=== PATIENT | female | born 1935 | race Caucasian/White ===

== ENCOUNTER 2017-09-21 18:00 | Inpatient (IN) | payer OTHER ==
[~2017-09-21] VITALS: Ht 149.9 cm; Wt 63.1 kg
[~2017-09-21 18:00] MED LIST: ATENOLOL25 MG PO; AUG500 PO; CEPACOL SORE TH1 LO4 MM; CIPRO500 MG PO; COL100 PO; COZAAR100 MG PO; EC NAPROSYN500 MG PO; IPRATROPIUM BROM3 M2 HHN; L40 PO; LAC PO; MEDROL4 MG; MIRAPEX PO; MUCINEX600 MG PO; NEU300 PO; ROBDML PO; SPIRIVA18 MC1 INH; XARELTO15 M1 PO
[2017-09-21 19:02] LABS: BASOPHIL % 0.2 % (0-2); PLATELET COUNT 262 x10^3mcL (130-400)
[2017-09-21 19:05] LABS: RED CELL DISTRIBUTION WIDTH 14.6 % (11.5-14.5)
[2017-09-21 19:21] LABS: ALKALINE PHOSPHATASE 107 U/L (46-116); ALT/SGPT 40 U/L (14-59); AST/SGOT 31 U/L (15-37); BILIRUBIN TOTAL 0.86 mg/dL (0.20-1.00); CARBON DIOXIDE 33.9 mmol/L (21-32); CHLORIDE SERUM 103 mmol/L (98-107); CREATININE SERUM 0.9 mg/dL (0.6-1.0); POTASSIUM SERUM 3.6 mmol/L (3.5-5.1); SODIUM SERUM 142 mmol/L (136-145); TOTAL PROTEIN, SERUM 7.5 g/dL (6.4-8.2)
[2017-09-21 19:24] LABS: microscopic required? YES; urine erythrocyte NEGATIVE (NEGATIVE)
[2017-09-21 19:24] LABS: ALBUMIN 3.3 g/dL (3.4-5.0)
[2017-09-21] MEDS ORDERED: NEU300 PO (20:17)
[2017-09-21] MEDS ORDERED: XARELTO10 M1 (20:18)
[2017-09-21] MEDS ORDERED: NOR5 PO (20:18)
[2017-09-21] MEDS ORDERED: MIRAPEX0.25 MG PO (20:19)
[2017-09-21] MEDS ORDERED: SEROQUEL25 MG PO (20:19)
[2017-09-21] MEDS ORDERED: ATORVASTATIN CA40 M1 PO (20:22)
[2017-09-21] MEDS ORDERED: FUROSEMIDE20 MG PO (20:23)
[2017-09-21] MEDS ORDERED: ATENOLOL25 MG PO (20:23)
[2017-09-21] MEDS ORDERED: COZAAR100 MG PO (20:23)
[2017-09-21 20:25] LABS: GLUCOSE SERUM 148 mg/dL (74-106)
[2017-09-21 20:38] VITALS: BP 159/79
[2017-09-21] MEDS ORDERED: LEVAQUIN750 MG PO ×2 (21:03→21:05)
[2017-09-21 21:09] LABS: MAGNESIUM 2.4 mg/dL (1.8-2.4); PHOSPHOROUS 2.6 mg/dL (2.5-4.9)
[2017-09-21 21:17] LABS: FREE T4 0.93 ng/dL (0.76-1.46)
[2017-09-21 21:31] LABS: FREE THYROXINE INDEX 2.3 ug/dL (1.4-4.5); T4(THYROXINE) 6.7 ug/dL (4.7-13.3)
[2017-09-21 21:44] LABS: T3 TOTAL 0.71 ng/mL
== END 2017-09-21 21:23 | disposition left against medical advice (07) | DRG 291 ==
LOC: ED 18:00 → DU 19:33
PROVIDERS: Emergency Medicine; ADMIT Family Medicine
DX: I11.0 Hypertensive heart disease with heart failure (principal); N17.0 Acute kidney failure with tubular necrosis; J96.01 Acute respiratory failure with hypoxia; E44.1 Mild protein-calorie malnutrition; I50.43 Acute on chronic combined systolic (congestive) and diastolic (congestive) heart failure; I48.91 Unspecified atrial fibrillation
CPT/HCPCS: 83880; 84439; J0696

== ENCOUNTER 2017-09-25 09:04 | Emergency (ER) | payer OTHER ==
[~2017-09-25 09:04] MED LIST changes: +ATORVASTATIN CA40 M1 PO; +FUROSEMIDE20 MG PO; +LEVAQUIN750 MG PO; +MIRAPEX0.25 MG PO; +NOR5 PO; +SEROQUEL25 MG PO; +XARELTO10 M1
[2017-09-25 10:10] VITALS: BP 177/91
== END 2017-09-25 10:10 | disposition home or self-care (01) ==
LOC: ED 09:04
DX: R04.0 Epistaxis (principal)

== ENCOUNTER 2017-12-06 12:25 | Inpatient (IN) | payer OTHER ==
[~2017-12-06] VITALS: Ht 149.9 cm; Wt 60.4 kg
[2017-12-06 12:51] VITALS: Ht 149.9 cm; Wt 60.4 kg
[2017-12-06 14:10] LABS: BASOPHIL % 0.3 % (0-2); PLATELET COUNT 208 x10^3mcL (130-400)
[2017-12-06 14:14] LABS: CALCIUM 8.6 mg/dL (8.5-10.1); CARBON DIOXIDE 28.9 mmol/L (21-32); CHLORIDE SERUM 105 mmol/L (98-107); CREATININE SERUM 0.9 mg/dL (0.6-1.0); GLUCOSE SERUM 91 mg/dL (74-106); POTASSIUM SERUM 3.3 mmol/L (3.5-5.1); SODIUM SERUM 141 mmol/L (136-145)
[2017-12-06 14:19] LABS: ALKALINE PHOSPHATASE 87 U/L (46-116); ALT/SGPT 29 U/L (14-59); AST/SGOT 25 U/L (15-37); BILIRUBIN TOTAL 0.8 mg/dL (0.20-1.00)
[2017-12-06 14:20] LABS: ALBUMIN 2.8 g/dL (3.4-5.0); TOTAL PROTEIN, SERUM 5.8 g/dL (6.4-8.2)
[2017-12-06] MEDS ORDERED: CHILDREN'S100 MG/52 (15:42)
[2017-12-06] MEDS ORDERED: PROL (15:42)
[2017-12-06] MEDS ORDERED: CORICIDIN HBP C1 TA1 PO (15:42)
[2017-12-06 16:32] LABS: PHOSPHOROUS 2.9 mg/dL (2.5-4.9)
[2017-12-06 16:35] LABS: CHOLESTEROL/HDL RATIO 2.4
[2017-12-06 16:46] LABS: FREE T4 0.95 ng/dL (0.76-1.46); FREE THYROXINE INDEX 1.9 ug/dL (1.4-4.5); T4(THYROXINE) 5.5 ug/dL (4.7-13.3)
[2017-12-06] MEDS ORDERED: SEROQUEL25 MG PO (17:14)
[2017-12-06] MEDS ORDERED: NEU300 PO (17:15)
[2017-12-06] MEDS ORDERED: FLUOXETINE20 M3 (17:17)
[2017-12-06] MEDS ORDERED: FUROSEMIDE40 MG PO (17:18)
[2017-12-06] MEDS ORDERED: NOR5 PO (17:18)
[2017-12-06] MEDS ORDERED: RANITIDINE HCL150 M1 PO (17:19)
[2017-12-06] MEDS ORDERED: MIRAPEX0.125 M1 PO (17:20)
[2017-12-06] MEDS ORDERED: LIPI20 PO (17:21)
[2017-12-06] MEDS ORDERED: ATENOLOL25 MG (17:23)
[2017-12-06] MEDS ORDERED: COZAAR100 MG PO (17:24)
[2017-12-06] MEDS ORDERED: XARELTO15 M1 (17:25)
[2017-12-06] MEDS ORDERED: LORAZEPAM1 MG PO (17:28)
[2017-12-06] MEDS ORDERED: LORAZEPAM0.5 MG PO (17:29)
[2017-12-06 17:30] LABS: T3 TOTAL 0.84 ng/mL
[2017-12-06 18:34] VITALS: BP 117/89
[2017-12-06 18:48] VITALS: BP 137/74
[2017-12-06 20:00] VITALS: BP 140/69
[2017-12-07 05:16] VITALS: BP 127/57
[2017-12-07 06:43] LABS: BASOPHIL % 0.1 % (0-2); PLATELET COUNT 205 x10^3mcL (130-400)
[2017-12-07 06:44] LABS: RED CELL DISTRIBUTION WIDTH 16.7 % (11.5-14.5)
[2017-12-07 07:08] LABS: CALCIUM 8.4 mg/dL (8.5-10.1); CARBON DIOXIDE 22.2 mmol/L (21-32); CHLORIDE SERUM 107 mmol/L (98-107); CREATININE SERUM 1.3 mg/dL (0.6-1.0); GLUCOSE SERUM 312 mg/dL (74-106); MAGNESIUM 2.1 mg/dL (1.8-2.4); PHOSPHOROUS 2.8 mg/dL (2.5-4.9); POTASSIUM SERUM 3.4 mmol/L (3.5-5.1); SODIUM SERUM 142 mmol/L (136-145)
[2017-12-07 07:18] LABS: microscopic required? NO
[2017-12-07 07:49] LABS: UA SPECIFIC GRAVITY 1.025 (1.005-1.035); urine erythrocyte NEGATIVE (NEGATIVE)
[2017-12-07 08:13] LABS: AMPHETAMINE QUAL UR NONE DETECTED (NEG <=1000)
[2017-12-07 14:44] VITALS: BP 124/57
[2017-12-07 17:57] VITALS: BP 109/67
[2017-12-07 21:00] VITALS: BP 98/68
[2017-12-07 21:05] VITALS: BP 114/54
[2017-12-08 05:59] VITALS: BP 113/65
[2017-12-08 06:48] LABS: PLATELET COUNT 197 x10^3mcL (130-400)
[2017-12-08 06:49] LABS: RED CELL DISTRIBUTION WIDTH 16.2 % (11.5-14.5)
[2017-12-08 06:56] LABS: CALCIUM 7.4 mg/dL (8.5-10.1); CARBON DIOXIDE 23.7 mmol/L (21-32); CHLORIDE SERUM 109 mmol/L (98-107); GLUCOSE SERUM 193 mg/dL (74-106); PHOSPHOROUS 2.5 mg/dL (2.5-4.9); POTASSIUM SERUM 3.2 mmol/L (3.5-5.1); SODIUM SERUM 144 mmol/L (136-145)
[2017-12-08 08:19] LABS: MONOCYTE 2 % (0-7); SEGMENTED NEUTROPHILS 91 % (37-75)
[2017-12-08 08:20] LABS: BAND NEUTROPHIL 2 % (0-10); rbc morphology (normal/abnorm) NORMAL (NORMAL)
[2017-12-08 10:15] VITALS: BP 147/79
[2017-12-08 14:22] VITALS: BP 136/75
[2017-12-08 18:41] VITALS: BP 120/58
[2017-12-08 21:16] VITALS: BP 104/64
[2017-12-09 05:48] VITALS: BP 136/77
[2017-12-09 06:54] LABS: PLATELET COUNT 201 x10^3mcL (130-400)
[2017-12-09 07:02] LABS: RED CELL DISTRIBUTION WIDTH 16.7 % (11.5-14.5)
[2017-12-09 07:15] LABS: CALCIUM 7.9 mg/dL (8.5-10.1); CARBON DIOXIDE 23.2 mmol/L (21-32); CHLORIDE SERUM 111 mmol/L (98-107); GLUCOSE SERUM 183 mg/dL (74-106); MAGNESIUM 2.1 mg/dL (1.8-2.4); PHOSPHOROUS 1.6 mg/dL (2.5-4.9); POTASSIUM SERUM 3.4 mmol/L (3.5-5.1); SODIUM SERUM 145 mmol/L (136-145)
[2017-12-09 08:17] LABS: BAND NEUTROPHIL 0 % (0-10); BASOPHIL 0 % (0-2); MONOCYTE 9 % (0-7); SEGMENTED NEUTROPHILS 80 % (37-75)
[2017-12-09 08:18] LABS: rbc morphology (normal/abnorm) ABNORMAL (NORMAL)
[2017-12-09 08:19] LABS: ovalocyte/elliptocyte 1+; schistocyte (helmet cell) 1+
[2017-12-09 09:07] VITALS: BP 163/96
[2017-12-09 16:39] VITALS: BP 130/77
[2017-12-09 19:20] VITALS: BP 133/82
[2017-12-10 05:28] VITALS: BP 121/68
[2017-12-10 06:14] LABS: PLATELET COUNT 218 x10^3mcL (130-400)
[2017-12-10 06:39] LABS: CALCIUM 7.8 mg/dL (8.5-10.1); CHLORIDE SERUM 104 mmol/L (98-107); CREATININE SERUM 0.9 mg/dL (0.6-1.0); GLUCOSE SERUM 196 mg/dL (74-106); PHOSPHOROUS 2.1 mg/dL (2.5-4.9); POTASSIUM SERUM 3.2 mmol/L (3.5-5.1); SODIUM SERUM 142 mmol/L (136-145)
[2017-12-10 06:56] LABS: BASOPHIL % 0 % (0-2); RED CELL DISTRIBUTION WIDTH 16.6 % (11.5-14.5)
[2017-12-10 09:42] VITALS: BP 140/83
[2017-12-10] MEDS ORDERED: AUGMENTIN 875-1 EACH PO (10:17)
[2017-12-10] MEDS ORDERED: MEDDP PO (10:18)
[2017-12-10] MEDS ORDERED: CULTURELLE DIGE1 CAP PO (10:19)
[2017-12-10] MEDS ORDERED: KLOR-CON M2020 MEQ PO (10:19)
[2017-12-10 10:34] VITALS: BP 140/83
== END 2017-12-10 15:40 | disposition home health service (06) | DRG 189 ==
LOC: ED 12:25 → DU 16:11 → MU 12-09 10:59
PROVIDERS: Emergency Medicine; Family Medicine
DX: J96.01 Acute respiratory failure with hypoxia (principal); N17.0 Acute kidney failure with tubular necrosis; E43 Unspecified severe protein-calorie malnutrition; I42.0 Dilated cardiomyopathy; J20.9 Acute bronchitis, unspecified; I48.91 Unspecified atrial fibrillation; I11.0 Hypertensive heart disease with heart failure; I50.9 Heart failure, unspecified; R73.03 Prediabetes; K29.70 Gastritis, unspecified, without bleeding; E87.6 Hypokalemia; E03.9 Hypothyroidism, unspecified; G62.9 Polyneuropathy, unspecified; G25.81 Restless legs syndrome; F32.9 Major depressive disorder, single episode, unspecified; Z68.27 Body mass index [BMI] 27.0-27.9, adult; Z79.01 Long term (current) use of anticoagulants
CPT/HCPCS: 36600; 83880; 84439; 87804; 97110-GP; 97116-GP; 97530-GP; J0456; J0696; J2543; J2920; J2930; J3490; J7030; J7050; J7620; Q0092

== ENCOUNTER 2017-12-12 14:54 | Inpatient (IN) | payer OTHER ==
[~2017-12-12] VITALS: Ht 149.9 cm; Wt 59.5 kg
[~2017-12-12 14:54] MED LIST changes: +ATENOLOL25 MG; +AUGMENTIN 875-1 EACH PO; +CHILDREN'S100 MG/52; +CORICIDIN HBP C1 TA1 PO; +CULTURELLE DIGE1 CAP PO; +FLUOXETINE20 M3; +FUROSEMIDE40 MG PO; +KLOR-CON M2020 MEQ PO; +LIPI20 PO; +LORAZEPAM0.5 MG PO; +LORAZEPAM1 MG PO; +MEDDP PO; +MIRAPEX0.125 M1 PO; +PROL; +RANITIDINE HCL150 M1 PO; +XARELTO15 M1
[2017-12-12 15:07] VITALS: Ht 149.9 cm; Wt 59.5 kg
[2017-12-12 16:42] LABS: BASOPHIL % 0.3 % (0-2); PLATELET COUNT 290 x10^3mcL (130-400)
[2017-12-12 16:47] LABS: RED CELL DISTRIBUTION WIDTH 15.9 % (11.5-14.5)
[2017-12-12 16:58] LABS: CALCIUM 9.9 mg/dL (8.5-10.1); CARBON DIOXIDE 31.3 mmol/L (21-32); CHLORIDE SERUM 101 mmol/L (98-107); CREATININE SERUM 0.8 mg/dL (0.6-1.0); GLUCOSE SERUM 113 mg/dL (74-106); POTASSIUM SERUM 3.7 mmol/L (3.5-5.1); SODIUM SERUM 139 mmol/L (136-145)
[2017-12-12 17:03] LABS: ALKALINE PHOSPHATASE 84 U/L (46-116); ALT/SGPT 59 U/L (14-59); AMYLASE 52 U/L (25-115); AST/SGOT 38 U/L (15-37); BILIRUBIN TOTAL 1.35 mg/dL (0.20-1.00); LIPASE 147 IU/L (73-393); TOTAL PROTEIN, SERUM 6.9 g/dL (6.4-8.2)
[2017-12-12 17:04] LABS: ALBUMIN 3.2 g/dL (3.4-5.0)
[2017-12-12 17:07] LABS: microscopic required? NO
[2017-12-12 17:35] LABS: urine erythrocyte NEGATIVE (NEGATIVE)
[2017-12-12 19:55] VITALS: BP 153/91
[2017-12-12 19:59] LABS: PHOSPHOROUS 3.5 mg/dL (2.5-4.9)
[2017-12-12 20:00] LABS: CHOLESTEROL/HDL RATIO 2.5
[2017-12-12 20:43] LABS: FREE T4 1.02 ng/dL (0.76-1.46); FREE THYROXINE INDEX 2.3 ug/dL (1.4-4.5); T4(THYROXINE) 6.4 ug/dL (4.7-13.3)
[2017-12-12 21:58] LABS: T3 TOTAL 0.73 ng/mL
[2017-12-13] VITALS (8 sets, daily range): BP systolic 84–126; BP diastolic 44–75
[2017-12-13 06:17] LABS: PLATELET COUNT 259 x10^3mcL (130-400)
[2017-12-13 07:21] LABS: CALCIUM 8.7 mg/dL (8.5-10.1); CARBON DIOXIDE 34.5 mmol/L (21-32); CHLORIDE SERUM 102 mmol/L (98-107); CREATININE SERUM 1.1 mg/dL (0.6-1.0); GLUCOSE SERUM 95 mg/dL (74-106); POTASSIUM SERUM 3.7 mmol/L (3.5-5.1); SODIUM SERUM 141 mmol/L (136-145)
[2017-12-13 08:49] LABS: RED CELL DISTRIBUTION WIDTH 16.1 % (11.5-14.5)
[2017-12-13 12:08] LABS: ATYPICAL LYMPH 4 %; BAND NEUTROPHIL 1 % (0-10); BASOPHIL 0 % (0-2); MONOCYTE 9 % (0-7); MYELOCYTE 1 % (0-2); SEGMENTED NEUTROPHILS 64 % (37-75)
[2017-12-13 12:09] LABS: rbc morphology (normal/abnorm) ABNORMAL (NORMAL); schistocyte (helmet cell) 2+
[2017-12-13 12:10] LABS: PLATELET MORPHOLOGY PLATELETS NORMAL
[2017-12-14 06:19] VITALS: BP 118/59
[2017-12-14 06:27] LABS: BASOPHIL % 0.8 % (0-2); PLATELET COUNT 286 x10^3mcL (130-400)
[2017-12-14 06:40] LABS: RED CELL DISTRIBUTION WIDTH 15.1 % (11.5-14.5)
[2017-12-14 07:02] LABS: ALKALINE PHOSPHATASE 72 U/L (46-116); ALT/SGPT 64 U/L (14-59); AST/SGOT 33 U/L (15-37); BILIRUBIN TOTAL 0.6 mg/dL (0.20-1.00); CALCIUM 8.2 mg/dL (8.5-10.1); CARBON DIOXIDE 30.8 mmol/L (21-32); CHLORIDE SERUM 104 mmol/L (98-107); CREATININE SERUM 1.1 mg/dL (0.6-1.0); GLUCOSE SERUM 75 mg/dL (74-106); POTASSIUM SERUM 3.3 mmol/L (3.5-5.1); SODIUM SERUM 142 mmol/L (136-145)
[2017-12-14 07:08] LABS: ALBUMIN 2.2 g/dL (3.4-5.0)
[2017-12-14 10:09] VITALS: BP 117/55
[2017-12-14 12:56] VITALS: BP 124/56
[2017-12-14 18:17] VITALS: BP 142/73
[2017-12-14 22:10] VITALS: BP 112/73
[2017-12-15 06:31] VITALS: BP 157/78
[2017-12-15 06:48] LABS: PLATELET COUNT 266 x10^3mcL (130-400)
[2017-12-15 07:14] LABS: RED CELL DISTRIBUTION WIDTH 15.8 % (11.5-14.5)
[2017-12-15 07:16] LABS: CALCIUM 8.8 mg/dL (8.5-10.1); CARBON DIOXIDE 29.3 mmol/L (21-32); CHLORIDE SERUM 104 mmol/L (98-107); CREATININE SERUM 0.7 mg/dL (0.6-1.0); GLUCOSE SERUM 88 mg/dL (74-106); POTASSIUM SERUM 3.9 mmol/L (3.5-5.1); SODIUM SERUM 140 mmol/L (136-145)
[2017-12-15 09:45] VITALS: BP 149/78
[2017-12-15 10:37] VITALS: BP 103/49
[2017-12-15 11:07] LABS: BAND NEUTROPHIL 1 % (0-10); BASOPHIL 0 % (0-2); MONOCYTE 5 % (0-7); SEGMENTED NEUTROPHILS 75 % (37-75)
[2017-12-15 11:08] LABS: MYELOCYTE 2 % (0-2); PLATELET MORPHOLOGY PLATELETS NORMAL; rbc morphology (normal/abnorm) ABNORMAL (NORMAL)
== END 2017-12-15 12:35 | disposition home health service (06) | DRG 555 ==
LOC: ED 14:54 → DU 19:04
PROVIDERS: Emergency Medicine; Family Medicine
DX: M79.81 Nontraumatic hematoma of soft tissue (principal); E43 Unspecified severe protein-calorie malnutrition; I42.0 Dilated cardiomyopathy; S30.1XXA Contusion of abdominal wall, initial encounter; J45.909 Unspecified asthma, uncomplicated; I11.0 Hypertensive heart disease with heart failure; I50.9 Heart failure, unspecified; T50.995A Adverse effect of other drugs, medicaments and biological substances, initial encounter; Y92.89 Other specified places as the place of occurrence of the external cause; I48.91 Unspecified atrial fibrillation; K21.9 Gastro-esophageal reflux disease without esophagitis; E02 Subclinical iodine-deficiency hypothyroidism; Z90.49 Acquired absence of other specified parts of digestive tract; Z83.3 Family history of diabetes mellitus; Z80.42 Family history of malignant neoplasm of prostate; E78.2 Mixed hyperlipidemia; Z68.26 Body mass index [BMI] 26.0-26.9, adult; E11.40 Type 2 diabetes mellitus with diabetic neuropathy, unspecified; G25.81 Restless legs syndrome; E87.6 Hypokalemia
CPT/HCPCS: 82962; 83880; 84439; 97530-GP; G0378; J1940; J2270; J2405; J3010; J7030

== ENCOUNTER 2018-05-19 12:01 | Inpatient (IN) | payer OTHER ==
[~2018-05-19] VITALS: Ht 149.9 cm; Wt 50.5 kg
[2018-05-19 13:14] LABS: BASOPHIL % 0.4 % (0-2); PLATELET COUNT 314 x10^3mcL (130-400)
[2018-05-19 13:15] LABS: RED CELL DISTRIBUTION WIDTH 15.3 % (11.5-14.5)
[2018-05-19 13:15] LABS: microscopic required? NO
[2018-05-19 13:36] LABS: CALCIUM 9.5 mg/dL (8.5-10.1); CARBON DIOXIDE 28.8 mmol/L (21-32); CHLORIDE SERUM 104 mmol/L (98-107); CREATININE SERUM 1.5 mg/dL (0.6-1.0); GLUCOSE SERUM 89 mg/dL (74-106); POTASSIUM SERUM 3.7 mmol/L (3.5-5.1); SODIUM SERUM 143 mmol/L (136-145)
[2018-05-19 13:36] LABS: UA SPECIFIC GRAVITY <=1.005 (1.005-1.035); urine erythrocyte NEGATIVE (NEGATIVE)
[2018-05-19 13:40] LABS: ALKALINE PHOSPHATASE 119 U/L (46-116); ALT/SGPT 25 U/L (14-59); AMYLASE 55 U/L (25-115); AST/SGOT 28 U/L (15-37); CHOLESTEROL 149 mg/dL (<200); HDL CHOLESTEROL 43 mg/dL (40-60); LIPASE 170 IU/L (73-393); TOTAL PROTEIN, SERUM 7.1 g/dL (6.4-8.2)
[2018-05-19 13:41] LABS: ALBUMIN 2.8 g/dL (3.4-5.0)
[2018-05-19] MEDS ORDERED: LEVO-T25 MCG PO (19:24)
[2018-05-19] MEDS ORDERED: METOLAZONE2.5 M1 PO (19:27)
[2018-05-19] MEDS ORDERED: CIPRO250 MG PO (19:28)
[2018-05-19] MEDS ORDERED: ESCITALOPRAM10 M1 PO (19:30)
[2018-05-19 20:35] LABS: AMPHETAMINE QUAL UR NONE DETECTED (See below)
[2018-05-19 20:40] LABS: T3 TOTAL 1.37 ng/mL
[2018-05-19 20:43] LABS: FREE T4 1.39 ng/dL (0.76-1.46); FREE THYROXINE INDEX 3.3 ug/dL (1.4-4.5)
[2018-05-19 21:18] VITALS: BP 126/59
[2018-05-19 22:04] LABS: IRON 99 ug/dL (50-170); TOTAL IRON BINDING CAPACITY 286 ug/dL (250-450)
[2018-05-19 22:19] LABS: RED BLOOD CELLS 3.82 M/mm3 (4.10-5.10)
[2018-05-19 22:46] VITALS: BP 117/73
[2018-05-20] VITALS (7 sets, daily range): BP systolic 88–119; BP diastolic 47–65
[2018-05-20 06:46] LABS: BASOPHIL % 0.5 % (0-2); PLATELET COUNT 326 x10^3mcL (130-400)
[2018-05-20 06:52] LABS: CALCIUM 9.3 mg/dL (8.5-10.1); CARBON DIOXIDE 27.3 mmol/L (21-32); CHLORIDE SERUM 104 mmol/L (98-107); CREATININE SERUM 1.4 mg/dL (0.6-1.0); GLUCOSE SERUM 91 mg/dL (74-106); SODIUM SERUM 143 mmol/L (136-145)
[2018-05-20 07:09] LABS: RED CELL DISTRIBUTION WIDTH 15.2 % (11.5-14.5)
[2018-05-21 05:06] VITALS: BP 99/52
[2018-05-21 08:00] VITALS: BP 109/55
[2018-05-21 09:00] VITALS: BP 106/57
[2018-05-21 13:27] VITALS: BP 107/49
[2018-05-21 14:31] VITALS: BP 107/49
[2018-05-21] MEDS ORDERED: ATORVASTATIN CA40 M1 PO (14:35)
[2018-05-21 14:36] LABS: CALCIUM 8.5 mg/dL (8.5-10.1); CARBON DIOXIDE 30.6 mmol/L (21-32); CHLORIDE SERUM 104 mmol/L (98-107); CREATININE SERUM 1.8 mg/dL (0.6-1.0); GLUCOSE SERUM 111 mg/dL (74-106); SODIUM SERUM 141 mmol/L (136-145)
== END 2018-05-21 15:18 | disposition home or self-care (01) | DRG 291 ==
LOC: ED 12:01 → DU 19:20
PROVIDERS: Emergency Medicine; Family Medicine
DX: I13.0 Hypertensive heart and chronic kidney disease with heart failure and stage 1 through stage 4 chronic kidney disease, or unspecified chronic kidney disease (principal); N17.0 Acute kidney failure with tubular necrosis; I50.43 Acute on chronic combined systolic (congestive) and diastolic (congestive) heart failure; I09.81 Rheumatic heart failure; N39.0 Urinary tract infection, site not specified; D68.69 Other thrombophilia; I08.3 Combined rheumatic disorders of mitral, aortic and tricuspid valves; E11.65 Type 2 diabetes mellitus with hyperglycemia; I48.2 Chronic atrial fibrillation; N18.3 Chronic kidney disease, stage 3 (moderate); J45.909 Unspecified asthma, uncomplicated; G25.81 Restless legs syndrome; D53.9 Nutritional anemia, unspecified; E78.00 Pure hypercholesterolemia, unspecified; E03.9 Hypothyroidism, unspecified; Z79.4 Long term (current) use of insulin; Z77.29 Contact with and (suspected) exposure to other hazardous substances
CPT/HCPCS: 36600; 83880; 84439; 94150; J1940; J7030; Q0092; Q0162

== ENCOUNTER 2018-06-06 19:52 | Emergency (ER) | payer OTHER ==
[~2018-06-06] VITALS: Ht 149.9 cm; Wt 58.1 kg
[~2018-06-06 19:52] MED LIST changes: +CIPRO250 MG PO; +ESCITALOPRAM10 M1 PO; +LEVO-T25 MCG PO; +METOLAZONE2.5 M1 PO
[2018-06-06 20:00] VITALS: Ht 149.9 cm; Wt 58.1 kg
[2018-06-06 20:33] LABS: BASOPHIL % 0.4 % (0-2); PLATELET COUNT 272 x10^3mcL (130-400)
[2018-06-06 20:43] LABS: CALCIUM 8.3 mg/dL (8.5-10.1); CHLORIDE SERUM 108 mmol/L (98-107); CREATININE SERUM 1.1 mg/dL (0.6-1.0); GLUCOSE SERUM 187 mg/dL (74-106); POTASSIUM SERUM 3.4 mmol/L (3.5-5.1); SODIUM SERUM 142 mmol/L (136-145)
[2018-06-06 20:47] LABS: ALKALINE PHOSPHATASE 78 U/L (46-116); ALT/SGPT 26 U/L (14-59); AST/SGOT 27 U/L (15-37); BILIRUBIN TOTAL 0.79 mg/dL (0.20-1.00); HDL CHOLESTEROL 59 mg/dL (40-60); MAGNESIUM 2.1 mg/dL (1.8-2.4)
[2018-06-06 20:48] LABS: RED CELL DISTRIBUTION WIDTH 16.2 % (11.5-14.5)
[2018-06-06 20:54] LABS: ALBUMIN 2.8 g/dL (3.4-5.0); CHOLESTEROL 131 mg/dL (<200); TOTAL PROTEIN, SERUM 6.1 g/dL (6.4-8.2)
[2018-06-06 23:54] VITALS: BP 160/78
== END 2018-06-06 23:54 | disposition home or self-care (01) ==
LOC: ED 19:52
PROVIDERS: Emergency Medicine
DX: I48.91 Unspecified atrial fibrillation (principal); T42.8X5A Adverse effect of antiparkinsonism drugs and other central muscle-tone depressants, initial encounter; T40.2X5A Adverse effect of other opioids, initial encounter; M19.90 Unspecified osteoarthritis, unspecified site; I11.0 Hypertensive heart disease with heart failure; I50.9 Heart failure, unspecified; J45.909 Unspecified asthma, uncomplicated; Z90.49 Acquired absence of other specified parts of digestive tract; E03.9 Hypothyroidism, unspecified; Y92.89 Other specified places as the place of occurrence of the external cause
CPT/HCPCS: J1885; J3490

== ENCOUNTER 2018-07-15 06:47 | Inpatient (IN) | payer OTHER ==
[~2018-07-15] VITALS: Ht 149.9 cm; Wt 57.2 kg
[2018-07-15 06:53] VITALS: Ht 149.9 cm; Wt 57.2 kg
[2018-07-15 08:14] LABS: BASOPHIL % 0.2 % (0-2); PLATELET COUNT 215 x10^3mcL (130-400)
[2018-07-15 08:15] LABS: RED CELL DISTRIBUTION WIDTH 16.5 % (11.5-14.5)
[2018-07-15 08:28] LABS: CALCIUM 9.2 mg/dL (8.5-10.1); CARBON DIOXIDE 28.1 mmol/L (21-32); CHLORIDE SERUM 106 mmol/L (98-107); CREATININE SERUM 0.9 mg/dL (0.6-1.0); GLUCOSE SERUM 138 mg/dL (74-106); POTASSIUM SERUM 3.1 mmol/L (3.5-5.1); SODIUM SERUM 142 mmol/L (136-145)
[2018-07-15 08:32] LABS: ALBUMIN 3.4 g/dL (3.4-5.0); ALKALINE PHOSPHATASE 88 U/L (46-116); ALT/SGPT 75 U/L (14-59); AST/SGOT 37 U/L (15-37); BILIRUBIN TOTAL 1.5 mg/dL (0.20-1.00); LIPASE 127 IU/L (73-393); TOTAL PROTEIN, SERUM 7.2 g/dL (6.4-8.2)
[2018-07-15 12:24] VITALS: BP 161/81
[2018-07-15 13:48] LABS: T3 TOTAL 0.85 ng/mL
[2018-07-15 14:08] LABS: MAGNESIUM 2.4 mg/dL (1.8-2.4); PHOSPHOROUS 3.3 mg/dL (2.5-4.9)
[2018-07-15 14:11] LABS: microscopic required? NO
[2018-07-15 14:18] LABS: FREE T4 1.19 ng/dL (0.76-1.46); FREE THYROXINE INDEX 3.1 ug/dL (1.4-4.5); T4(THYROXINE) 8.3 ug/dL (4.7-13.3)
[2018-07-15 14:20] LABS: urine erythrocyte NEGATIVE (NEGATIVE)
[2018-07-15] MEDS ORDERED: XARELTO15 M1 PO (14:22)
[2018-07-15] MEDS ORDERED: FLUOXETINE HYDR10 M1 PO (14:23)
[2018-07-15] MEDS ORDERED: GLIPIZIDE5 M2 PO (14:23)
[2018-07-15 14:32] LABS: AMPHETAMINE QUAL UR NONE DETECTED (See below)
[2018-07-15 15:02] VITALS: BP 161/81
[2018-07-15 17:50] VITALS: BP 159/77
[2018-07-15 19:02] LABS: CHOLESTEROL/HDL RATIO 2.2
[2018-07-15 20:15] VITALS: BP 147/67
[2018-07-16 05:25] VITALS: BP 177/89
[2018-07-16 06:38] LABS: BASOPHIL % 0.1 % (0-2); PLATELET COUNT 218 x10^3mcL (130-400)
[2018-07-16 06:43] LABS: CALCIUM 9.6 mg/dL (8.5-10.1); CARBON DIOXIDE 27.5 mmol/L (21-32); CHLORIDE SERUM 108 mmol/L (98-107); CREATININE SERUM 0.8 mg/dL (0.6-1.0); GLUCOSE SERUM 108 mg/dL (74-106); POTASSIUM SERUM 4.2 mmol/L (3.5-5.1); SODIUM SERUM 144 mmol/L (136-145)
[2018-07-16 06:55] LABS: RED CELL DISTRIBUTION WIDTH 17.2 % (11.5-14.5)
[2018-07-16 09:03] VITALS: BP 169/65
[2018-07-16] MEDS ORDERED: ATENOLOL50 MG PO (10:57)
[2018-07-16 10:59] VITALS: BP 122/62
[2018-07-16 11:48] VITALS: BP 122/62
== END 2018-07-16 13:13 | disposition home or self-care (01) | DRG 291 ==
LOC: ED 06:47 → DU 10:44
PROVIDERS: Emergency Medicine; Internal Medicine
DX: I50.43 Acute on chronic combined systolic (congestive) and diastolic (congestive) heart failure (principal); N17.0 Acute kidney failure with tubular necrosis; I16.1 Hypertensive emergency; D68.69 Other thrombophilia; D72.829 Elevated white blood cell count, unspecified; I48.91 Unspecified atrial fibrillation; E87.6 Hypokalemia; E11.9 Type 2 diabetes mellitus without complications; E03.9 Hypothyroidism, unspecified; Z79.01 Long term (current) use of anticoagulants
CPT/HCPCS: 82962; 83880; 84439; 94150; J1940; J7620; Q0092

== ENCOUNTER 2018-09-19 16:03 | Inpatient (IN) | payer OTHER ==
[~2018-09-19] VITALS: Ht 149.9 cm; Wt 58.1 kg
[~2018-09-19 16:03] MED LIST changes: +ATENOLOL50 MG PO; +FLUOXETINE HYDR10 M1 PO; +GLIPIZIDE5 M2 PO
[2018-09-19 16:32] VITALS: Ht 149.9 cm; Wt 58.1 kg
[2018-09-19 17:20] LABS: BASOPHIL % 0.3 % (0-2); PLATELET COUNT 209 x10^3mcL (130-400); RED CELL DISTRIBUTION WIDTH 17.3 % (11.5-14.5)
[2018-09-19 17:26] LABS: CALCIUM 8.9 mg/dL (8.5-10.1); CARBON DIOXIDE 28.1 mmol/L (21-32); CHLORIDE SERUM 110 mmol/L (98-107); CREATININE SERUM 1.1 mg/dL (0.6-1.0); GLUCOSE SERUM 76 mg/dL (74-106); POTASSIUM SERUM 3.6 mmol/L (3.5-5.1); SODIUM SERUM 147 mmol/L (136-145)
[2018-09-19 17:30] LABS: ALKALINE PHOSPHATASE 94 U/L (46-116); ALT/SGPT 38 U/L (14-59); AST/SGOT 21 U/L (15-37); BILIRUBIN TOTAL 0.9 mg/dL (0.20-1.00); TOTAL PROTEIN, SERUM 6.4 g/dL (6.4-8.2)
[2018-09-19 17:31] LABS: ALBUMIN 2.5 g/dL (3.4-5.0)
[2018-09-19] MEDS ORDERED: LEVOTHYROXIN0.025 M2 PO (17:58)
[2018-09-19] MEDS ORDERED: FLUOXETINE HYDR10 M1 PO (17:58)
[2018-09-19] MEDS ORDERED: FUROSEMIDE40 MG PO (17:59)
[2018-09-19] MEDS ORDERED: GLIPIZIDE5 M2 PO (17:59)
[2018-09-19] MEDS ORDERED: NEU300 PO (17:59)
[2018-09-19] MEDS ORDERED: LOSARTAN POTAS100 M1 PO (17:59)
[2018-09-19] MEDS ORDERED: POTASSIUM CHLO10 MEQ PO (18:00)
[2018-09-19] MEDS ORDERED: MIRAPEX0.125 M1 PO (18:00)
[2018-09-19] MEDS ORDERED: XARELTO15 M1 PO (18:01)
[2018-09-19] MEDS ORDERED: TENORMIN50 MG PO (18:01)
[2018-09-19] MEDS ORDERED: VALACYCLOVIR PO (18:01)
[2018-09-19 19:32] LABS: MAGNESIUM 2.5 mg/dL (1.8-2.4); PHOSPHOROUS 3.5 mg/dL (2.5-4.9)
[2018-09-19 20:13] VITALS: BP 144/85
[2018-09-20 00:54] LABS: UA SPECIFIC GRAVITY 1.015 (1.005-1.035); microscopic required? YES; urine erythrocyte NEGATIVE (NEGATIVE)
[2018-09-20 05:44] VITALS: BP 145/79
[2018-09-20 07:20] LABS: CALCIUM 8.7 mg/dL (8.5-10.1); CARBON DIOXIDE 24.4 mmol/L (21-32); CHLORIDE SERUM 108 mmol/L (98-107); GLUCOSE SERUM 137 mg/dL (74-106); MAGNESIUM 2.5 mg/dL (1.8-2.4); PHOSPHOROUS 2.8 mg/dL (2.5-4.9); POTASSIUM SERUM 4.3 mmol/L (3.5-5.1); SODIUM SERUM 142 mmol/L (136-145)
[2018-09-20 07:48] LABS: BASOPHIL % 0.2 % (0-2); PLATELET COUNT 181 x10^3mcL (130-400)
[2018-09-20 07:52] LABS: RED CELL DISTRIBUTION WIDTH 15.7 % (11.5-14.5)
[2018-09-20 09:43] VITALS: BP 116/60
[2018-09-20 17:53] VITALS: BP 139/79
[2018-09-20 21:16] VITALS: BP 133/79
[2018-09-21 05:27] VITALS: BP 150/76
[2018-09-21 06:04] LABS: PLATELET COUNT 175 x10^3mcL (130-400)
[2018-09-21 06:31] LABS: CALCIUM 8.5 mg/dL (8.5-10.1); CARBON DIOXIDE 24.6 mmol/L (21-32); CHLORIDE SERUM 105 mmol/L (98-107); GLUCOSE SERUM 122 mg/dL (74-106); MAGNESIUM 1.8 mg/dL (1.8-2.4); PHOSPHOROUS 3.1 mg/dL (2.5-4.9); POTASSIUM SERUM 3.5 mmol/L (3.5-5.1); SODIUM SERUM 137 mmol/L (136-145)
[2018-09-21 06:33] LABS: BASOPHIL % 0 % (0-2); RED CELL DISTRIBUTION WIDTH 16.5 % (11.5-14.5)
[2018-09-21 09:35] VITALS: BP 134/56
[2018-09-21 17:43] VITALS: BP 149/74
[2018-09-21 20:59] VITALS: BP 171/77
[2018-09-21 23:17] VITALS: BP 160/86
[2018-09-22 05:37] VITALS: BP 155/82
[2018-09-22 07:26] LABS: CALCIUM 8.8 mg/dL (8.5-10.1); CARBON DIOXIDE 26.6 mmol/L (21-32); CHLORIDE SERUM 105 mmol/L (98-107); GLUCOSE SERUM 96 mg/dL (74-106); MAGNESIUM 1.7 mg/dL (1.8-2.4); PHOSPHOROUS 3.4 mg/dL (2.5-4.9); SODIUM SERUM 140 mmol/L (136-145)
[2018-09-22 08:14] LABS: POTASSIUM SERUM 2.8 mmol/L (3.5-5.1)
[2018-09-22 08:15] LABS: BASOPHIL % 0.6 % (0-2); PLATELET COUNT 197 x10^3mcL (130-400)
[2018-09-22 08:17] LABS: RED CELL DISTRIBUTION WIDTH 14.9 % (11.5-14.5)
[2018-09-22 08:43] VITALS: BP 152/69
[2018-09-22 12:54] VITALS: BP 126/66
[2018-09-22 13:32] VITALS: BP 126/66
[2018-09-22 17:14] VITALS: BP 143/71
[2018-09-22 21:36] VITALS: BP 112/57
[2018-09-23 05:35] VITALS: BP 149/75
[2018-09-23 06:33] LABS: BASOPHIL % 0.1 % (0-2); PLATELET COUNT 226 x10^3mcL (130-400)
[2018-09-23 06:40] LABS: RED CELL DISTRIBUTION WIDTH 16.2 % (11.5-14.5)
[2018-09-23 06:54] LABS: CALCIUM 9.3 mg/dL (8.5-10.1); CARBON DIOXIDE 27.9 mmol/L (21-32); CHLORIDE SERUM 103 mmol/L (98-107); GLUCOSE SERUM 96 mg/dL (74-106); MAGNESIUM 1.6 mg/dL (1.8-2.4); PHOSPHOROUS 3.6 mg/dL (2.5-4.9); SODIUM SERUM 140 mmol/L (136-145)
[2018-09-23 06:57] LABS: POTASSIUM SERUM 2.9 mmol/L (3.5-5.1)
[2018-09-23 09:32] VITALS: BP 160/74
[2018-09-23 12:48] VITALS: BP 147/69
[2018-09-23] MEDS ORDERED: ULTRAM50 MG PO (15:04)
[2018-09-23] MEDS ORDERED: LEVAQUIN500 M1 PO (15:06)
[2018-09-23 17:18] VITALS: BP 144/75
[2018-09-23 17:30] LABS: CALCIUM 9.3 mg/dL (8.5-10.1); CARBON DIOXIDE 28.7 mmol/L (21-32); CHLORIDE SERUM 102 mmol/L (98-107); CREATININE SERUM 1.1 mg/dL (0.6-1.0); GLUCOSE SERUM 115 mg/dL (74-106); POTASSIUM SERUM 3.4 mmol/L (3.5-5.1); SODIUM SERUM 141 mmol/L (136-145)
[2018-09-23 21:05] VITALS: BP 176/89
[2018-09-23 23:04] VITALS: BP 133/61
[2018-09-24 05:19] LABS: BASOPHIL % 0.3 % (0-2); PLATELET COUNT 250 x10^3mcL (130-400)
[2018-09-24 05:29] LABS: CARBON DIOXIDE 29.5 mmol/L (21-32); CHLORIDE SERUM 102 mmol/L (98-107); CREATININE SERUM 1.1 mg/dL (0.6-1.0); GLUCOSE SERUM 83 mg/dL (74-106)
[2018-09-24 05:42] VITALS: BP 135/55
[2018-09-24 05:44] LABS: SODIUM SERUM 142 mmol/L (136-145)
[2018-09-24 05:46] LABS: POTASSIUM SERUM 2.8 mmol/L (3.5-5.1)
[2018-09-24 10:03] VITALS: BP 130/60
[2018-09-24 10:19] VITALS: BP 130/60
== END 2018-09-24 11:27 | disposition home health service (06) | DRG 602 ==
LOC: ED 16:03 → MU 18:09 → DU 18:09 → MU 19:39 → DU 09-21 17:49
PROVIDERS: Emergency Medicine; Family Medicine
DX: L03.115 Cellulitis of right lower limb (principal); N17.0 Acute kidney failure with tubular necrosis; E43 Unspecified severe protein-calorie malnutrition; E87.0 Hyperosmolality and hypernatremia; I13.0 Hypertensive heart and chronic kidney disease with heart failure and stage 1 through stage 4 chronic kidney disease, or unspecified chronic kidney disease; N18.3 Chronic kidney disease, stage 3 (moderate); E86.0 Dehydration; E83.41 Hypermagnesemia; B02.9 Zoster without complications; F32.9 Major depressive disorder, single episode, unspecified; I73.9 Peripheral vascular disease, unspecified; I48.91 Unspecified atrial fibrillation; E03.9 Hypothyroidism, unspecified; I87.8 Other specified disorders of veins; Z68.25 Body mass index [BMI] 25.0-25.9, adult
CPT/HCPCS: 82962; 83880; 97110-GP; 97530-GP; J0295; J1885; J2543; J3010; J3370; J3475; J3480; J7030; Q0092; Q9967

== ENCOUNTER 2018-10-11 15:48 | Emergency (ER) | payer OTHER ==
[~2018-10-11] VITALS: Ht 149.9 cm; Wt 65.8 kg
[~2018-10-11 15:48] MED LIST changes: +LEVAQUIN500 M1 PO; +LEVOTHYROXIN0.025 M2 PO; +LOSARTAN POTAS100 M1 PO; +POTASSIUM CHLO10 MEQ PO; +TENORMIN50 MG PO; +ULTRAM50 MG PO; +VALACYCLOVIR PO
[2018-10-11 15:52] VITALS: Ht 149.9 cm; Wt 65.8 kg
[2018-10-11 17:37] LABS: BASOPHIL % 0.5 % (0-2); PLATELET COUNT 299 x10^3mcL (130-400)
[2018-10-11 17:41] LABS: CALCIUM 9.5 mg/dL (8.5-10.1); CARBON DIOXIDE 31.5 mmol/L (21-32); CHLORIDE SERUM 105 mmol/L (98-107); CREATININE SERUM 0.8 mg/dL (0.6-1.0); GLUCOSE SERUM 84 mg/dL (74-106); POTASSIUM SERUM 3.1 mmol/L (3.5-5.1); RED CELL DISTRIBUTION WIDTH 17.5 % (11.5-14.5); SODIUM SERUM 142 mmol/L (136-145)
[2018-10-11 17:45] LABS: ALT/SGPT 17 U/L (14-59); AST/SGOT 25 U/L (15-37); LIPASE 141 IU/L (73-393)
[2018-10-11 18:00] LABS: ALKALINE PHOSPHATASE 117 U/L (46-116); BILIRUBIN TOTAL 0.91 mg/dL (0.20-1.00); TOTAL PROTEIN, SERUM 6.7 g/dL (6.4-8.2)
[2018-10-11 18:02] LABS: ALBUMIN 2.9 g/dL (3.4-5.0)
[2018-10-11 19:28] LABS: microscopic required? YES; urine erythrocyte TRACE (NEGATIVE)
[2018-10-11 20:16] VITALS: BP 102/76
[2018-10-12] MEDS ORDERED: NEU300 PO (05:30)
[2018-10-12] MEDS ORDERED: LIPITOR40 MG PO (05:33)
[2018-10-12] MEDS ORDERED: MIRAPEX0.25 MG PO (05:34)
== END 2018-10-11 20:16 | disposition home or self-care (01) ==
LOC: ED 15:48
PROVIDERS: Emergency Medicine
DX: K29.70 Gastritis, unspecified, without bleeding (principal); I50.9 Heart failure, unspecified; I11.9 Hypertensive heart disease without heart failure; E11.9 Type 2 diabetes mellitus without complications; E03.9 Hypothyroidism, unspecified; I48.91 Unspecified atrial fibrillation; F41.9 Anxiety disorder, unspecified; Z90.49 Acquired absence of other specified parts of digestive tract; J45.909 Unspecified asthma, uncomplicated
CPT/HCPCS: 83880; J1940; J3490; Q0092

== ENCOUNTER 2018-10-12 01:38 | Inpatient (IN) | payer OTHER ==
[~2018-10-12] VITALS: Ht 149.9 cm; Wt 53.2 kg
[2018-10-12 01:51] VITALS: Ht 149.9 cm; Wt 53.2 kg
[2018-10-12 03:15] LABS: BASOPHIL % 0.6 % (0-2); PLATELET COUNT 301 x10^3mcL (130-400); RED CELL DISTRIBUTION WIDTH 17.7 % (11.5-14.5)
[2018-10-12 03:28] LABS: CALCIUM 9.3 mg/dL (8.5-10.1); CARBON DIOXIDE 30.8 mmol/L (21-32); CHLORIDE SERUM 106 mmol/L (98-107); CREATININE SERUM 0.9 mg/dL (0.6-1.0); GLUCOSE SERUM 114 mg/dL (74-106); SODIUM SERUM 144 mmol/L (136-145)
[2018-10-12 03:39] LABS: ALKALINE PHOSPHATASE 130 U/L (46-116); ALT/SGPT 18 U/L (14-59); AST/SGOT 30 U/L (15-37); BILIRUBIN TOTAL 0.99 mg/dL (0.20-1.00); LIPASE 126 IU/L (73-393); TOTAL PROTEIN, SERUM 6.4 g/dL (6.4-8.2)
[2018-10-12 03:40] LABS: ALBUMIN 3.1 g/dL (3.4-5.0)
[2018-10-12] MEDS ORDERED: NEU300 PO (05:30)
[2018-10-12] MEDS ORDERED: LIPITOR40 MG PO (05:33)
[2018-10-12] MEDS ORDERED: MIRAPEX0.25 MG PO (05:34)
[2018-10-12 06:00] LABS: MAGNESIUM 1.7 mg/dL (1.8-2.4)
--- NOTE | 2018-10-12 06:07 | NUR ---
PT RECIEVED FROM THE ED VIA [facility] ACCOMPLANIED BY DAUGHTERS AND THE RN. PT IS ON 4L NC. BED IN LOWEST POSITION, CALL LIGHT WITHIN REACH. WILL ENDORSE CONTINUITY OF CARE TO THE ONCOMING RN. WILL CONTINUE TO MONITOR AT THIS TIME.
--- NOTE | 2018-10-12 07:30 | NUR ---
RECEIVED PATIENT RESTING IN BED. ABX INFUSING TO RAC (SEE EMAR), IV SITE IS CDI, NO REDNESS, SWELLING OR PAIN AT SITE. NO SOB NOTED AT THIS TIME, ON 4L NC, 98% PULSE OX. DENIES PAIN AT THIS TIME. TELE MONITOR IN PLACE. PT AMBULATORY WITH ASSIST. FAMILY AT BEDSIDE. CALL LIGHT WITHIN REACH. BED IN LOW POSITION.
[2018-10-12 10:30] VITALS: BP 132/73
--- NOTE | 2018-10-12 12:10 | NUR ---
SPOKE WITH SUJIT JONES AND INFORMED HER OF MAG 1.7, LACTIC ACID 2.1, PATIENT HAD UA/URINE CX DONE AND COLLECTED YESTERDAY 10/11/18 AT 1900. PER SUJIT JONES NO NEED TO COLLECT NEW URINE SAMPLE THAT WAS ORDERED FOR TODAY, WILL REPLEAT MAGNESIUM AND REPEAT LACTIC ACID. ALSO INFORMED SUJIT MARBLE CUTTER OPERATOR PATIENT IS FEELING ANXIOUS BUT FAMILY IS REFUSING ATIVAN PATIENT HAS HAD HALLUCINATIONS WHEN SHE HAS TAKEN IT PREVIOUSLY. PER SUJIT MARBLE CUTTER OPERATOR WILL ORDER XANAX FOR PATIENTS ANXIETY. ALL QUESTIONS AND CONCERNS ADDRESSED. MIGUELINA BELCHER AWARE.
[2018-10-12 14:18] VITALS: BP 141/81
--- NOTE | 2018-10-12 15:10 | NUR ---
PATIENT SEEN RESTING IN BED COMFORTABLY, NO DISTRESS NOTED. FAMILY AT BEDSIDE. SAFETY PRECAUTIONS MAINTAINED, WILL MONITOR.
--- NOTE | 2018-10-12 17:17 | NUR ---
PATIENT SITTING UP IN BED RESTING COMFORTABLY NO DISTRESS NOTED. DUE MEDICATION GIVEN, TOLERATED WELL. ALL NEEDS ATTENDED TO. SAFETY PRECAUTIONS MAINTAINED. WILL MONITOR.
[2018-10-12 17:56] VITALS: BP 121/58
--- NOTE | 2018-10-12 18:30 | NUR ---
PATIENT SITTING UP IN THE CHAIR AT BEDSIDE, NO DISTRESS NOTED. DAUGHTER AZALEA AND JUANITO AT BEDSIDE. IV TO RAC INTACT INFUSING IVF WELL FREE FROM REDNESS AND INFILTRATION. NO ACUTE CHANGES DURING SHIFT. ALL NEEDS ATTENDED TO. SAFETY PRECAUTIONS MAINTAINED. WILL ENDORSE CARE TO ONCOMING NURSE.
--- NOTE | 2018-10-12 20:00 | NUR ---
PT RECIEVED FROM THE DAY SHIFT RN, PT IS ALERT AND ORIENTED X4, NO SOB NOTED, NO DISTRESS NOETD, PT IS CALM AND COOPERATIVE WITH CARE, DAUGHTERS AT THE BEDSIDE. SAFETY AND COMFORT MEASURES MAINTAINED, BED IN LOWEST POSITION, CALL LIGHT WITHIN REACH, WILL CONTINUE TO MONITOR AT THIS TIME.
[2018-10-12 22:19] VITALS: BP 128/66
--- NOTE | 2018-10-13 00:40 | NUR ---
PT IS RESTING IN BED WITH EYES CLOSED AT THIS TIME. DAUGHTER IS AT THE BEDSIDE. NO DISTRESS NOTED, NO SOB NOTED. PT HAS BEEN CALM AND COOPERATIVE WITH CARE AT THIS TIME. SAFETY AND COMFORT MEASURES MAINTAINED, BED IN LOWEST POSITION, CALL LIGHT WITHIN REACH. WILL CONTINUE TO MONITOR AT THIS TIME.
--- NOTE | 2018-10-13 02:40 | NUR ---
PT IS RESTING IN BED WITH EYES CLOSED AT THIS TIME. NO DISTRESS NOTED, DAUGHTER IS AT THE BEDSIDE, SAFETY AND COMFORT MEASURES MAINTAINED, BED IN LOWEST POSITION, CALL LIGHT WITHIN REACH. WILL CONTINUE TO MONITOR AT THIS TIME.
--- NOTE | 2018-10-13 04:06 | NUR ---
PT IS RESTING IN BED AT THIS TIME WITH EYES CLOSED, NO ACUTE DISTRESS NOTED, PT IS ON 4 L NC, DAUGHTER IS AT THE BEDSIDE, SAFETY AND COMFORT MEASURES MAINTAINED, BED IN LOWEST POSITION, CALL LIGHT WITHIN REACH. WILL CONTINUE TO MONITOR AT THIS TIME.
--- NOTE | 2018-10-13 05:15 | NUR ---
PT HAS SLEPT IN LONG INTERVALS THROUGHOUT THE SHIFT. PT IS EASILY AWAKENED WITH VERBAL STIMULUS, DAUGHTER HAS BEEN AT THE BEDSIDE THROUGHOUT THE SHIFT. PT IV IS INFUSING WELL AND IS INTACT. NO SOB NOTED, NO DISTRESS NOTED, PT HAS BIPAP ORDERED NEEDED FOR NIGHT TIME. SAFETY AND COMFORT MEASURES MAINTAINED, BED IN LOWEST POSITION, CALL LIGHT WITHIN REACH. WILL ENDORSE CONTINUITY OF CARE TO THE ONCOMING RN, WILL CONTINUE TO MONITOR AT THIS TIME.
[2018-10-13 05:49] VITALS: BP 119/44
[2018-10-13 07:06] LABS: BASOPHIL % 0.6 % (0-2); PLATELET COUNT 218 x10^3mcL (130-400)
[2018-10-13 07:11] LABS: CALCIUM 8.6 mg/dL (8.5-10.1); CARBON DIOXIDE 29.7 mmol/L (21-32); CHLORIDE SERUM 107 mmol/L (98-107); CREATININE SERUM 0.9 mg/dL (0.6-1.0); GLUCOSE SERUM 126 mg/dL (74-106); MAGNESIUM 1.9 mg/dL (1.8-2.4); PHOSPHOROUS 3.7 mg/dL (2.5-4.9); POTASSIUM SERUM 3.1 mmol/L (3.5-5.1); RED CELL DISTRIBUTION WIDTH 17.5 % (11.5-14.5); SODIUM SERUM 141 mmol/L (136-145)
[2018-10-13 07:27] LABS: ALBUMIN 2.3 g/dL (3.4-5.0)
--- NOTE | 2018-10-13 07:40 | NUR ---
PT IS AAOX4. FOLLOWS COMMANDS. DENIES H/A OR DIZZINESS. TELEMONITOR [address] READING AFIB WITH PVCS, HR 96. DENIES CHEST PAIN OR PRESSURE. RESP EVEN SHALLOW AND UNLABORED. NO SOB OR COUGH NOTED. LUNG SOUNDS DIMINISHED WITH FINE CRACKLES AT BILATERAL BASES. ABODOMEN SOFT, ROUND, NONTENDER, NONDISTENDED. SKIN CDI. IV CATH TO RAC NS LOCKED, PATENT WITH NO S/S OF INFECTION NOTED. PT DENIES PAIN OR DISCOMFORT AT THIS TIME. FAMILY AT BEDSIDE. CALL LIGHT WITHIN REACH. BED ALARM ON.
--- NOTE | 2018-10-13 09:20 | NUR ---
DUE MEDS GIVEN. COREG HELD DUE TO SBP =110/20. R/T AT BEDSIDE TAKING ABG. DENIES PAIN OR DISCOMFORT. NO DISTRESS NOTED. PT SITTING IN CHAIR AT BEDSIDE. NO RESP DISTRESS OR SOB NOTED. DAUGHTER AT BEDSIDE. CALL LIGHT WITHIN REACH.
[2018-10-13 09:36] VITALS: BP 110/70
--- NOTE | 2018-10-13 12:03 | NUR ---
PT IS IN BED RESTING BUT EASILY AROUSABLE. DUE MED GIVEN. DENIES PAIN OR DISCOMFORT. RESP EVEN AND UNLABORED. NO SOB OR COUGH NOTED. DAUGHTER AT BEDSIDE. CALL LIGHT WITHIN REACH.
[2018-10-13 12:59] VITALS: BP 110/54
--- NOTE | 2018-10-13 15:00 | NUR ---
PT SLEEPING IN BED BUT EASILY AROUSABLE. RESP EVEN AND UNLABORED. NO DISTRESS NOTED. DAUGHTER AT BEDSIDE. BED ALARM ON. CALL LIGHT WITHIN REACH.
[2018-10-13 16:59] VITALS: BP 129/67
--- NOTE | 2018-10-13 17:05 | NUR ---
PT GIVEN DUE MEDS. DENIES PAIN OR DISCOMFORT. RESP EVEN AND UNLABORED. NO COUGH OR SOB NOTED. CALL LIGHT WITHIN REACH. FAMILY AT BEDSIDE.
--- NOTE | 2018-10-13 18:24 | NUR ---
PT IS AAOX4. RESP EVEN AND UNLABORED. PT ON O2 N/C 2 LPM. NO COUGH OR SOB NOTED. PT TURNED AND REPOSITIONED SELF THROUGH OUT SHIFT. IV CATH TO RAC PATENT WITH NO S/S OF INFECTION OF INFILTRATION NOTED. BED IN LOW POSITION. CALL LIGHT WITHIN REACH. WILL ENDORSE ALL CARE TO ONCOMING RN.
--- NOTE | 2018-10-13 19:30 | NUR ---
PT AA/OX4 RR EVEN AND UNLABORED. DENIES SOB ON 2LNC. DENIES CHEST PAIN. TELE #14 A-FIB WITH PVCS, PULSES PRESENT NO EDEMA NOTED. LUNGS PRESENT WITH FINE CRACKLES BILATERALLY, RT PROTOCOL IN PLACE, BOWEL SOUNDS ACTIVE LAST B,MM PT STATES 10/12/2018. VOIDS FREELY, GENERALIZED WEAKNESS AMBULATES WITH ASSISTANCE BY NURSE AND FAMILY. DISCOLORATION TO RLE. DENIES PAIN AT THIS TIME. IV PATENT TO RAC. PT CALM AND COOPERATIVE. BED IN LOWEST POSITION, CALL LIGHT WITHIN REACH, WILL CONTINUE TO MONITOR.
[2018-10-13 21:45] VITALS: BP 131/69
--- NOTE | 2018-10-14 03:41 | NUR ---
PT RESTING IN BED RR EVEN AND UNLABORED. NO ACUTE DISTRESS NOTED FAMILY AT BED SIDE. BED IN LOWEST POSITION, CALL LIGHT WITHIN REACH, WILL CONTINUE TO MONITOR
[2018-10-14 06:18] VITALS: BP 143/79
[2018-10-14 06:25] LABS: CALCIUM 9.1 mg/dL (8.5-10.1); CARBON DIOXIDE 28.9 mmol/L (21-32); CHLORIDE SERUM 106 mmol/L (98-107); CREATININE SERUM 0.9 mg/dL (0.6-1.0); GLUCOSE SERUM 90 mg/dL (74-106); MAGNESIUM 1.8 mg/dL (1.8-2.4); POTASSIUM SERUM 3.7 mmol/L (3.5-5.1); SODIUM SERUM 142 mmol/L (136-145)
[2018-10-14 06:35] LABS: ALBUMIN 2.4 g/dL (3.4-5.0)
[2018-10-14 06:38] LABS: BASOPHIL % 0.4 % (0-2); PLATELET COUNT 222 x10^3mcL (130-400)
[2018-10-14 07:02] LABS: RED CELL DISTRIBUTION WIDTH 17.8 % (11.5-14.5)
[2018-10-14 07:43] VITALS: BP 96/52
--- NOTE | 2018-10-14 08:54 | NUR ---
DUE MEDS GIVEN. B/P 124.53 (84), P 96. PT DENIES PAIN OR DISCOMFORT. PT RECEIVING BREATHING TX WITH RT AT THIS TIME. CALL LIGHT WITHIN REACH. DAUGHTER AT BEDSIDE.
--- NOTE | 2018-10-14 09:57 | NUR ---
PT IS AAOX4. FOLLOWS COMMANDS. DENIES H/A OR DIZZINESS. RESP EVEN, SHALLOW AND UNLABORED. LUNG SOUNDS DIMINISHED AT THE BASES. NO COUGH OR SOB NOTED AT THIS TIME. PT ON 02 N/C AT 2LPM. ABDOMEN SOFT, ROUND, NONTENDER, NONDISTENDED. SKIN CDI. PERIPHERAL PULSES PALPABLE. NO EDEMA NOTED. IV CATH TO RAC N/S LOCKED, PATENT WITH NO S/S OF INFECTION OR INFILTRATION NOTED. PT DENIES PAIN OR DISCOMFORT AT THIS TIME. CALL LIGHT WITHIN REACH. BED IN LOW POSITION. FALL PROTOCOL FOLLOWED. DAUGHTER AT BEDSIDE.
--- NOTE | 2018-10-14 12:54 | NUR ---
TYLENOL 650MG PO GIVEN FOR R KNEE PAIN 02/23. FLUIDS ENCOURAGED. RESP EVEN AND UNLABORED. NO RESP DISTRESS NOTED. FAMILY AT BEDSIDE VISITING. CALL LIGHT WITHIN REACH. FALL PRECAUTIONS FOLLOWED.
[2018-10-14 13:43] VITALS: BP 99/54
--- NOTE | 2018-10-14 14:48 | NUR ---
REPORTED TO ROBERT GOODE THAT WHEN PT SITS UP FOR AN HOUR IN CHAIR +2 PITTING EDEMA OCCURS. EDEMA SUBSIDES ONCE PT IS BACK AND BED AND FEET ARE EVEVATED ON PILLOW. RUPA VOICED UNDERSTANDING. NO NEW ORDERS AT THIS TIME.
--- NOTE | 2018-10-14 16:37 | NUR ---
DUE MED GIVEN AND TOLERATED WELL. PT ASSISTED TO SIT UP AT BEDSIDE WITH MEAL TRAY SET IN FRONT OF PT TO PREVENT FALL. CALL LIGHT WITHIN REACH. BED ALARM ON. DAUGHTER AT BEDSIDE.
[2018-10-14 17:41] VITALS: BP 121/81
--- NOTE | 2018-10-14 18:34 | NUR ---
PT AAOX4. DENIES PAIN AND DISCOMFORT. NO DISTRESS NOTED. PT ON 02 N/C AT 2 LITERS PER MIN. NO SOB OR RESP DISTRESS NOTED. IV CATH TO RAC NS LOCKED, PATENT WITH NO S/S OF INFECTION OR INFILTRATION. TELEMONITOR [address] SHOWING AFIB. NO C/O CHEST PAIN/PRESSURE. CALL LIGHT WITHIN REACH. FALL PRECAUTIONS IN PLACE. WILL ENDORSE ALL CARE TO ONCOMING NOC RN.
--- NOTE | 2018-10-14 19:30 | NUR ---
PT IS ALERT AND ORIENTED X 4. PLEASANT AND COOPERATIVE. 2 LITERS NASAL CANNULA.02SAT- 98%. BIPAP AT NIGHT. GENERALIZED WEAKNESS BUT SHE IS ABLE TO AMBULATE TO THE BATHROOM WITH ASSISTANCE. STILL HAS IV NS AT 5 ML PER HOUR TKO AND STILL GETTING 2 IV ANTIBIOTICS ZITHROMAX AND ROCEPHIN. NO ADVERSE REACTION NOTED. NOTED NONBLANCHABLE REDNESS COCCYX AREA. TURN TO SIDES. WILL MONITOR.
[2018-10-14 21:08] VITALS: BP 92/41
--- NOTE | 2018-10-15 04:36 | NUR ---
PT IS RESTING WELL. STILL GETTING ZITHROMAX IV AND ROCEPHIN IV. RIGHT AC HEPLOCK. 2 LITERS NASAL CANNULA. MADE COMFORTABLE IN BED. DAUGHTER AT BEDSIDE. DENIES ANY PAIN. WITH BATHROOM PRIVILEGES AND WITH ASSISTANCE. WILL CONTINUE TO MONITOR.
[2018-10-15 06:29] VITALS: BP 131/83
[2018-10-15 06:40] LABS: BASOPHIL % 0.6 % (0-2); PLATELET COUNT 211 x10^3mcL (130-400)
[2018-10-15 07:14] LABS: CARBON DIOXIDE 28.7 mmol/L (21-32); CHLORIDE SERUM 104 mmol/L (98-107); CREATININE SERUM 0.9 mg/dL (0.6-1.0); GLUCOSE SERUM 96 mg/dL (74-106); POTASSIUM SERUM 3.7 mmol/L (3.5-5.1); SODIUM SERUM 141 mmol/L (136-145)
--- NOTE | 2018-10-15 07:20 | NUR ---
RECEIVED PT IN NO ACUTE DISTRESS. RESTING IN BED. AAOX4. RESP EVEN AND UNLABORED ON 2L NC. NO SOB NOTED. DENIES PAIN. IV TO RAC, NO REDNESS OR SWELLING NOTED. HOB SLIGHTLY ELEVATED. 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 DAUGHTER AT BEDSIDE. BED IN LOW POSITION, CALL LIGHT WITHIN REACH. WILL CONTINUE TO MONITOR.
[2018-10-15 07:35] LABS: RED CELL DISTRIBUTION WIDTH 17.8 % (11.5-14.5)
[2018-10-15 08:34] VITALS: BP 116/62
[2018-10-15 08:44] VITALS: BP 116/62
[2018-10-15] MEDS ORDERED: KEFLEX500 M1 PO (09:56)
[2018-10-15] MEDS ORDERED: SINGULAIR10 MG (09:58)
[2018-10-15 10:28] VITALS: BP 116/62
[2018-10-15 12:38] VITALS: BP 150/76
--- NOTE | 2018-10-15 13:50 | NUR ---
PT DISCHARGED TO HOME IN NO ACUTE DISTRESS. AWAKE, ALERT, AND ORIENTED. VSS. TRANSPORTED VIA WHEELCHAIR. PT'S DAUGHTER PRESENT FOR TRANSLATION. RX GIVEN. DISCHARGE EDUCATION PROVIDED, PT AND DAUGHTER VERBALIZED UNDERSTANDING. INSTRUCTED PT TO FOLLOW UP WITH PCP. IV TO RAC DC'D WITH CATHETER INTACT. TELE REMOVED. BELONGINGS WITH PT. LONNIE GIBSON ACCOMPANIED PT TO [facility].
== END 2018-10-15 13:45 | disposition home or self-care (01) | DRG 177 ==
LOC: ED 01:38 → DU 05:01
PROVIDERS: Emergency Medicine; ADMIT Internal Medicine
DX: J69.0 Pneumonitis due to inhalation of food and vomit (principal); J96.01 Acute respiratory failure with hypoxia; I50.31 Acute diastolic (congestive) heart failure; J44.1 Chronic obstructive pulmonary disease with (acute) exacerbation; E87.1 Hypo-osmolality and hyponatremia; I11.0 Hypertensive heart disease with heart failure; I48.91 Unspecified atrial fibrillation; F41.9 Anxiety disorder, unspecified; E11.9 Type 2 diabetes mellitus without complications; E03.9 Hypothyroidism, unspecified; J45.909 Unspecified asthma, uncomplicated; Z68.35 Body mass index [BMI] 35.0-35.9, adult
CPT/HCPCS: 36600; 83880; 84439; 85378; 87804; C9113; J0456; J0696; J1644; J7040; J7620; J7626; Q0092; Q0163

== ENCOUNTER 2018-10-16 11:25 | Emergency (ER) | payer OTHER ==
[~2018-10-16] VITALS: Ht 149.9 cm; Wt 50.3 kg
[~2018-10-16 11:25] MED LIST changes: +KEFLEX500 M1 PO; +LIPITOR40 MG PO; +SINGULAIR10 MG
[2018-10-16 11:29] VITALS: Ht 149.9 cm; Wt 50.3 kg
[2018-10-16 12:20] LABS: BASOPHIL % 0.5 % (0-2); PLATELET COUNT 243 x10^3mcL (130-400)
[2018-10-16 12:23] LABS: CALCIUM 9.5 mg/dL (8.5-10.1); CARBON DIOXIDE 29.1 mmol/L (21-32); CHLORIDE SERUM 103 mmol/L (98-107); GLUCOSE SERUM 102 mg/dL (74-106); POTASSIUM SERUM 3.4 mmol/L (3.5-5.1); SODIUM SERUM 140 mmol/L (136-145)
[2018-10-16 12:24] LABS: RED CELL DISTRIBUTION WIDTH 17.1 % (11.5-14.5)
[2018-10-16 12:28] LABS: ALBUMIN 2.8 g/dL (3.4-5.0); ALKALINE PHOSPHATASE 122 U/L (46-116); ALT/SGPT 20 U/L (14-59); AST/SGOT 26 U/L (15-37); BILIRUBIN TOTAL 0.88 mg/dL (0.20-1.00); CHOLESTEROL 126 mg/dL (<200); HDL CHOLESTEROL 50 mg/dL (40-60); TOTAL PROTEIN, SERUM 6.7 g/dL (6.4-8.2)
[2018-10-16 15:29] VITALS: BP 161/91
== END 2018-10-16 15:29 | disposition home or self-care (01) ==
LOC: ED 11:25
PROVIDERS: Emergency Medicine
DX: R06.03 Acute respiratory distress (principal); J98.01 Acute bronchospasm; I50.9 Heart failure, unspecified; I48.91 Unspecified atrial fibrillation; E03.9 Hypothyroidism, unspecified; J45.909 Unspecified asthma, uncomplicated; E11.9 Type 2 diabetes mellitus without complications; I10 Essential (primary) hypertension; F41.9 Anxiety disorder, unspecified; Z90.49 Acquired absence of other specified parts of digestive tract
CPT/HCPCS: 36600; 83880; J1940; Q0092

== ENCOUNTER 2018-11-12 01:05 | Inpatient (IN) | payer OTHER ==
[~2018-11-12] VITALS: Ht 149.9 cm; Wt 59.0 kg
[2018-11-12 01:11] VITALS: Ht 149.9 cm; Wt 59.0 kg
[2018-11-12 01:41] LABS: BASOPHIL % 1.1 % (0-2); PLATELET COUNT 178 x10^3mcL (130-400)
[2018-11-12 01:49] LABS: CALCIUM 9.6 mg/dL (8.5-10.1); CARBON DIOXIDE 28.1 mmol/L (21-32); CHLORIDE SERUM 103 mmol/L (98-107); CREATININE SERUM 0.9 mg/dL (0.6-1.0); GLUCOSE SERUM 110 mg/dL (74-106); POTASSIUM SERUM 3.3 mmol/L (3.5-5.1); SODIUM SERUM 137 mmol/L (136-145)
[2018-11-12 01:53] LABS: ALKALINE PHOSPHATASE 120 U/L (46-116); ALT/SGPT 41 U/L (14-59); AMYLASE 37 U/L (25-115); AST/SGOT 37 U/L (15-37); BILIRUBIN TOTAL 1.6 mg/dL (0.20-1.00); RED CELL DISTRIBUTION WIDTH 15.9 % (11.5-14.5); TOTAL PROTEIN, SERUM 7.1 g/dL (6.4-8.2)
[2018-11-12 01:55] LABS: ALBUMIN 3.2 g/dL (3.4-5.0)
[2018-11-12] MEDS ORDERED: KLOR-CON M1010 MEQ PO (04:37)
[2018-11-12] MEDS ORDERED: XARELTO10 M1 PO (04:38)
[2018-11-12] MEDS ORDERED: METOPROLOL TART25 M1 PO (04:39)
[2018-11-12] MEDS ORDERED: ACIDOPHILUS LA1 EAC1 PO (04:40)
[2018-11-12] MEDS ORDERED: FUROSEMIDE40 MG PO (04:41)
[2018-11-12 05:01] LABS: CHOLESTEROL/HDL RATIO 2.1; MAGNESIUM 2.4 mg/dL (1.8-2.4); PHOSPHOROUS 2.8 mg/dL (2.5-4.9)
[2018-11-12 09:26] LABS: CALCIUM 8.5 mg/dL (8.5-10.1); CARBON DIOXIDE 25.9 mmol/L (21-32); CHLORIDE SERUM 108 mmol/L (98-107); CREATININE SERUM 0.9 mg/dL (0.6-1.0); GLUCOSE SERUM 74 mg/dL (74-106); MAGNESIUM 2.2 mg/dL (1.8-2.4); PHOSPHOROUS 2.5 mg/dL (2.5-4.9); POTASSIUM SERUM 3.7 mmol/L (3.5-5.1); SODIUM SERUM 139 mmol/L (136-145)
[2018-11-12 09:27] LABS: BASOPHIL % 0.3 % (0-2); PLATELET COUNT 152 x10^3mcL (130-400)
[2018-11-12 09:29] LABS: BILIRUBIN DIRECT 0.48 mg/dL (0.0-0.2); BILIRUBIN TOTAL 1.5 mg/dL (0.20-1.00)
[2018-11-12 09:32] LABS: ALBUMIN 2.4 g/dL (3.4-5.0); TOTAL PROTEIN, SERUM 5.4 g/dL (6.4-8.2)
[2018-11-12 12:03] VITALS: BP 133/63
[2018-11-12 16:26] VITALS: BP 107/45
[2018-11-12 19:06] LABS: microscopic required? NO
[2018-11-12 19:14] LABS: urine erythrocyte NEGATIVE (NEGATIVE)
[2018-11-12 19:56] LABS: AMPHETAMINE QUAL UR NONE DETECTED (See below)
[2018-11-12 21:40] VITALS: BP 117/47
[2018-11-13 05:35] VITALS: BP 127/60
[2018-11-13 07:07] LABS: CALCIUM 8.4 mg/dL (8.5-10.1); CARBON DIOXIDE 24.5 mmol/L (21-32); CHLORIDE SERUM 108 mmol/L (98-107); GLUCOSE SERUM 77 mg/dL (74-106); MAGNESIUM 2.1 mg/dL (1.8-2.4); PHOSPHOROUS 3.5 mg/dL (2.5-4.9); POTASSIUM SERUM 3.6 mmol/L (3.5-5.1); SODIUM SERUM 140 mmol/L (136-145)
[2018-11-13 07:54] LABS: BASOPHIL % 0.8 % (0-2)
[2018-11-13 07:59] LABS: PLATELET COUNT 155 x10^3mcL (130-400)
[2018-11-13 08:01] LABS: RED CELL DISTRIBUTION WIDTH 16.2 % (11.5-14.5)
[2018-11-13 09:52] VITALS: BP 127/68
[2018-11-13 13:52] VITALS: BP 140/69
[2018-11-13 17:00] VITALS: BP 120/52
[2018-11-13 21:13] VITALS: BP 136/67
[2018-11-14 05:39] VITALS: BP 137/67
[2018-11-14 07:06] LABS: CALCIUM 8.4 mg/dL (8.5-10.1); CARBON DIOXIDE 25.4 mmol/L (21-32); CHLORIDE SERUM 110 mmol/L (98-107); CREATININE SERUM 0.9 mg/dL (0.6-1.0); GLUCOSE SERUM 91 mg/dL (74-106); POTASSIUM SERUM 3.5 mmol/L (3.5-5.1); SODIUM SERUM 144 mmol/L (136-145)
[2018-11-14 09:34] VITALS: BP 147/74
[2018-11-14 12:32] VITALS: BP 147/74
[2018-11-14 12:42] VITALS: BP 148/77
[2018-11-14 15:48] LABS: BASOPHIL % 0.9 % (0-2); PLATELET COUNT 171 x10^3mcL (130-400)
[2018-11-14 15:52] LABS: RED CELL DISTRIBUTION WIDTH 16.5 % (11.5-14.5)
== END 2018-11-14 13:50 | disposition home or self-care (01) | DRG 391 ==
LOC: ED 01:05 → DU 03:33 → EDBEDREQ 03:33 → MU 03:33 → DU 17:42
PROVIDERS: Emergency Medicine; ADMIT Internal Medicine
DX: A08.4 Viral intestinal infection, unspecified (principal); I50.43 Acute on chronic combined systolic (congestive) and diastolic (congestive) heart failure; E44.1 Mild protein-calorie malnutrition; I16.0 Hypertensive urgency; I11.0 Hypertensive heart disease with heart failure; E87.6 Hypokalemia; I48.91 Unspecified atrial fibrillation; E03.9 Hypothyroidism, unspecified; Z68.21 Body mass index [BMI] 21.0-21.9, adult
CPT/HCPCS: 82962; 83880; 85378; C9113; J1885; J1940; J2765; J3480; J7030; Q0092

== ENCOUNTER 2018-11-24 22:57 | Inpatient (IN) | payer OTHER ==
[~2018-11-24] VITALS: Ht 152.4 cm; Wt 51.8 kg
[~2018-11-24 22:57] MED LIST changes: +ACIDOPHILUS LA1 EAC1 PO; +KLOR-CON M1010 MEQ PO; +METOPROLOL TART25 M1 PO; +XARELTO10 M1 PO
[2018-11-24 23:02] VITALS: Ht 152.4 cm; Wt 51.8 kg
[2018-11-25] VITALS (7 sets, daily range): BP systolic 123–156; BP diastolic 62–90
[2018-11-25 01:47] LABS: BASOPHIL % 0.6 % (0-2); PLATELET COUNT 279 x10^3mcL (130-400)
[2018-11-25 01:49] LABS: RED CELL DISTRIBUTION WIDTH 15.9 % (11.5-14.5)
[2018-11-25 02:32] LABS: microscopic required? YES; urine erythrocyte NEGATIVE (NEGATIVE)
[2018-11-25 02:45] LABS: CALCIUM 8.6 mg/dL (8.5-10.1); CARBON DIOXIDE 24.8 mmol/L (21-32); CHLORIDE SERUM 106 mmol/L (98-107); CREATININE SERUM 0.9 mg/dL (0.6-1.0); GLUCOSE SERUM 109 mg/dL (74-106); SODIUM SERUM 143 mmol/L (136-145)
[2018-11-25 02:50] LABS: ALKALINE PHOSPHATASE 102 U/L (46-116); ALT/SGPT 31 U/L (14-59); AST/SGOT 25 U/L (15-37); TOTAL PROTEIN, SERUM 6.5 g/dL (6.4-8.2)
[2018-11-25 02:53] LABS: ALBUMIN 3.1 g/dL (3.4-5.0)
[2018-11-25] MEDS ORDERED: PANTOPRAZOLE SO40 M1 PO (03:01)
[2018-11-25] MEDS ORDERED: ATENOLOL50 MG PO (03:02)
[2018-11-25 04:46] LABS: PHOSPHOROUS 3.9 mg/dL (2.5-4.9)
[2018-11-25 04:56] LABS: T3 TOTAL 0.99 ng/mL
[2018-11-25 05:00] LABS: CHOLESTEROL/HDL RATIO 2.3
[2018-11-25 07:55] LABS: FREE T4 1.55 ng/dL (0.76-1.46); FREE THYROXINE INDEX 3.6 ug/dL (1.4-4.5); T4(THYROXINE) 9.5 ug/dL (4.7-13.3)
[2018-11-26 05:58] VITALS: BP 119/68
[2018-11-26 06:59] LABS: PLATELET COUNT 243 x10^3mcL (130-400)
[2018-11-26 07:11] LABS: BASOPHIL % 0 % (0-2); RED CELL DISTRIBUTION WIDTH 17.5 % (11.5-14.5)
[2018-11-26 07:31] LABS: CALCIUM 8.7 mg/dL (8.5-10.1); CHLORIDE SERUM 108 mmol/L (98-107); CREATININE SERUM 0.9 mg/dL (0.6-1.0); GLUCOSE SERUM 110 mg/dL (74-106); MAGNESIUM 2.1 mg/dL (1.8-2.4); PHOSPHOROUS 3.5 mg/dL (2.5-4.9); POTASSIUM SERUM 3.2 mmol/L (3.5-5.1); SODIUM SERUM 143 mmol/L (136-145)
[2018-11-26 08:15] VITALS: BP 135/68
[2018-11-26 11:24] VITALS: BP 128/53
[2018-11-26 17:55] VITALS: BP 115/52
[2018-11-26 21:16] VITALS: BP 114/50
[2018-11-27 05:50] VITALS: BP 147/71
[2018-11-27 07:11] LABS: BASOPHIL % 0.7 % (0-2); PLATELET COUNT 265 x10^3mcL (130-400)
[2018-11-27 07:12] LABS: RED CELL DISTRIBUTION WIDTH 17.5 % (11.5-14.5)
[2018-11-27 09:20] VITALS: BP 120/51
[2018-11-27 12:00] VITALS: BP 133/60
[2018-11-27 12:19] LABS: CALCIUM 8.5 mg/dL (8.5-10.1); CHLORIDE SERUM 108 mmol/L (98-107); CREATININE SERUM 0.9 mg/dL (0.6-1.0); GLUCOSE SERUM 77 mg/dL (74-106); POTASSIUM SERUM 3.5 mmol/L (3.5-5.1); SODIUM SERUM 144 mmol/L (136-145)
[2018-11-27 17:00] VITALS: BP 132/65
[2018-11-27 21:02] VITALS: BP 14/73; BP 148/73
[2018-11-28 05:58] VITALS: BP 144/63
[2018-11-28 07:03] LABS: BASOPHIL % 0.6 % (0-2); PLATELET COUNT 261 x10^3mcL (130-400); RED CELL DISTRIBUTION WIDTH 17.1 % (11.5-14.5)
[2018-11-28 07:08] LABS: CALCIUM 9.1 mg/dL (8.5-10.1); CARBON DIOXIDE 30.7 mmol/L (21-32); CHLORIDE SERUM 106 mmol/L (98-107); CREATININE SERUM 0.7 mg/dL (0.6-1.0); GLUCOSE SERUM 80 mg/dL (74-106); MAGNESIUM 1.8 mg/dL (1.8-2.4); SODIUM SERUM 145 mmol/L (136-145)
[2018-11-28 07:15] LABS: POTASSIUM SERUM 2.9 mmol/L (3.5-5.1)
[2018-11-28 09:05] VITALS: BP 109/45
[2018-11-28 12:45] VITALS: BP 128/51
[2018-11-28 15:37] VITALS: BP 128/51
== END 2018-11-28 20:20 | disposition home or self-care (01) | DRG 291 ==
LOC: ED 22:57 → DU 11-25 02:47
PROVIDERS: Emergency Medicine; ADMIT Internal Medicine
DX: I11.0 Hypertensive heart disease with heart failure (principal); N17.0 Acute kidney failure with tubular necrosis; J96.01 Acute respiratory failure with hypoxia; E44.1 Mild protein-calorie malnutrition; N39.0 Urinary tract infection, site not specified; I50.43 Acute on chronic combined systolic (congestive) and diastolic (congestive) heart failure; I48.2 Chronic atrial fibrillation; E87.6 Hypokalemia; F41.9 Anxiety disorder, unspecified; F32.9 Major depressive disorder, single episode, unspecified; E03.9 Hypothyroidism, unspecified; Z68.23 Body mass index [BMI] 23.0-23.9, adult
CPT/HCPCS: 82962; 83880; 84439; 87804; 94150; A9500; J1940; J2543; J2785; J3370; J7050; Q0092

== ENCOUNTER 2020-05-02 19:42 | Emergency (ER) | payer OTHER ==
[~2020-05-02] VITALS: Ht 149.9 cm; Wt 63.5 kg
[~2020-05-02 19:42] MED LIST changes: +PANTOPRAZOLE SO40 M1 PO
[2020-05-02 20:50] LABS: BASOPHIL % 0.4 % (0-2); PLATELET COUNT 229 x10^3mcL (130-400)
[2020-05-02 20:51] LABS: RED CELL DISTRIBUTION WIDTH 15.1 % (11.5-14.5)
[2020-05-02 21:06] LABS: CALCIUM 8.5 mg/dL (8.5-10.1); CARBON DIOXIDE 28.1 mmol/L (21-32); CHLORIDE SERUM 109 mmol/L (98-107); CREATININE SERUM 1.8 mg/dL (0.6-1.0); GLUCOSE SERUM 76 mg/dL (74-106); POTASSIUM SERUM 4.1 mmol/L (3.5-5.1); SODIUM SERUM 145 mmol/L (136-145)
[2020-05-02 21:11] LABS: ALKALINE PHOSPHATASE 61 U/L (46-116); ALT/SGPT 29 U/L (14-59); AST/SGOT 22 U/L (15-37); BILIRUBIN TOTAL 0.9 mg/dL (0.20-1.00); CHOLESTEROL 177 mg/dL (<200); LIPASE 160 IU/L (73-393); T3 TOTAL 0.66 ng/mL; TRIGLYCERIDES 120 mg/dL (<150)
[2020-05-02 21:12] LABS: ALBUMIN 3.1 g/dL (3.4-5.0); CHOLESTEROL/HDL RATIO 2.7; HDL CHOLESTEROL 66 mg/dL (40-60); TOTAL PROTEIN, SERUM 6.1 g/dL (6.4-8.2)
[2020-05-02 21:28] LABS: FREE T4 1.2 ng/dL (0.76-1.46); T4(THYROXINE) 7.7 ug/dL (4.7-13.3)
[2020-05-02 22:04] LABS: UA SPECIFIC GRAVITY 1.015 (1.005-1.035); microscopic required? YES; urine erythrocyte NEGATIVE (NEGATIVE)
[2020-05-03 00:32] VITALS: BP 128/77
== END 2020-05-03 00:32 | disposition home or self-care (01) ==
LOC: ED 19:42
PROVIDERS: Specialist
DX: S81.012A Laceration without foreign body, left knee, initial encounter (principal); S60.222A Contusion of left hand, initial encounter; I11.0 Hypertensive heart disease with heart failure; I50.9 Heart failure, unspecified; E11.9 Type 2 diabetes mellitus without complications; E03.9 Hypothyroidism, unspecified; I48.91 Unspecified atrial fibrillation; Z90.49 Acquired absence of other specified parts of digestive tract; W10.1XXA Fall (on)(from) sidewalk curb, initial encounter; Y93.89 Activity, other specified; Y92.89 Other specified places as the place of occurrence of the external cause; Y99.8 Other external cause status
CPT/HCPCS: 83880; 84439; 90715; J0690; J2001; J7030; Q0092

== ENCOUNTER 2020-11-19 18:17 | Emergency (ER) | payer OTHER ==
[~2020-11-19] VITALS: Ht 149.9 cm; Wt 59.0 kg
[2020-11-19 18:22] VITALS: Ht 149.9 cm; Wt 59.0 kg
[2020-11-19 20:41] VITALS: BP 144/55
== END 2020-11-19 20:38 | disposition home or self-care (01) ==
LOC: ED 18:17
DX: S81.012A Laceration without foreign body, left knee, initial encounter (principal); S00.83XA Contusion of other part of head, initial encounter; S80.02XA Contusion of left knee, initial encounter; S20.212A Contusion of left front wall of thorax, initial encounter; J45.909 Unspecified asthma, uncomplicated; E03.9 Hypothyroidism, unspecified; I11.0 Hypertensive heart disease with heart failure; I50.9 Heart failure, unspecified; E11.9 Type 2 diabetes mellitus without complications; I48.91 Unspecified atrial fibrillation; Z90.49 Acquired absence of other specified parts of digestive tract; W18.39XA Other fall on same level, initial encounter; Y93.89 Activity, other specified; Y92.89 Other specified places as the place of occurrence of the external cause; Y99.8 Other external cause status

== ENCOUNTER 2020-12-12 03:16 | Emergency (ER) | payer OTHER ==
[~2020-12-12] VITALS: Ht 149.9 cm; Wt 56.9 kg
[2020-12-12 03:28] VITALS: Ht 149.9 cm; Wt 56.9 kg
[2020-12-12 05:04] VITALS: BP 159/75
== END 2020-12-12 05:51 | disposition home or self-care (01) ==
LOC: ED 03:16
DX: S42.121A Displaced fracture of acromial process, right shoulder, initial encounter for closed fracture (principal); J45.909 Unspecified asthma, uncomplicated; I50.9 Heart failure, unspecified; I11.0 Hypertensive heart disease with heart failure; E11.9 Type 2 diabetes mellitus without complications; E03.9 Hypothyroidism, unspecified; I48.91 Unspecified atrial fibrillation; Z90.49 Acquired absence of other specified parts of digestive tract; X58.XXXA Exposure to other specified factors, initial encounter; Y93.89 Activity, other specified; Y92.89 Other specified places as the place of occurrence of the external cause; Y99.8 Other external cause status